=== PATIENT | male | born 1960 | race Caucasian/White ===

== ENCOUNTER 2017-03-27 10:23 | Day surgery (SDC) | payer OTHER ==
[~2017-03-27] VITALS: Ht 188 cm; Wt 135.0 kg
[~2017-03-27 10:23] MED LIST: ALBU8.5H4 IH; BENZ-12 PO; CYAN250010 PO; DORZ10DR22 OU; FLUT16SP2 NS; GABA-502 PO; LATA2.5D6 OU; LISI10TA PO; OXYC-465 PO; SYN.15T2 PO; TAM75UDCAP PO; TEST200V20 IM; TIZA4CAP8 PO; ZLP10T PO
[2017-03-27] MEDS ORDERED: MethylprednisoLONE Depot 80 mg/mL Inj ONE (10:24)
[2017-03-27] MEDS ORDERED: Iohexol 240 mg/mL 10 mL Inj ONE (10:24)
[2017-03-27 11:19] VITALS: BP 126/88; PULSE 76; RESP 14; O2SAT 98
--- NOTE | 2017-03-27 13:05 | PCM.PROC ---
Procedure Note Date of Service: Mar 27, 2017 Pre Procedure Diagnosis: PROCEDURE: Lumbar Interlaminar epidural steroid injection. RIGHT L5-S1 ASA / ANTI-COAGULATION . No asa x 7 days. PRE-PROCEDURE DIAGNOSIS: Lumbar radiculopathy POST-PROCEDURE DIAGNOSIS: same INDICATION: 56-year-old patient referred for RIGHT L5-S1 interlaminar epidural steroid injection for lumbar radiculopathy. PERFORMED BY: Ralph Goodman MD DESCRIPTION OF PROCEDURE: Patient was met in the holding area. Consent was signed, site was confirmed and all questions were answered. Patient was taken to the procedure suite and placed prone on the procedure table. Area was prepped and draped in sterile fashion. Local anesthesia with 1% lidocaine was injected. An 18-gauge Touhy needle was advanced toward the interlaminar space using fluoroscopic guidance after optimizing the AP view. A loss of resistance syringe was attached as we approached the epidural space in the lateral view. After [id number] was obtained, radioopaque contrast was injected under live fluro which confirmed epidural placement without intravascular uptake. Then , 80 mg depomedrol was injected without difficulty. ANESTHESIA: Local. EBL: None. No Blood Products Used COMPLICATIONS: None SPECIMENS: None POST-PROCEDURE DISPOSITION: Patient was returned to the holding area in stable condition. They were discharged home when all discharge criteria were met. Evaluation/Physical Exam before discharge revealed: DISCHARGE MEDICATIONS: FOLLOW UP: Return to clinic in 4 weeks Ralph Goodman MD * Pain Management * Anesthesiology .ED: Y: Patient given care and follow up instructions Ralph Goodman MD Mar 27, 2017 13:05
== END 2017-03-27 23:59 | disposition home or self-care (01) ==
LOC: END 10:23
PROVIDERS: ATTEND Anesthesiology Pain Medicine
DX: M54.16 Radiculopathy, lumbar region (principal); I10 Essential (primary) hypertension; E03.9 Hypothyroidism, unspecified; G89.29 Other chronic pain; F41.9 Anxiety disorder, unspecified; E66.9 Obesity, unspecified; Z68.38 Body mass index [BMI] 38.0-38.9, adult
CPT/HCPCS: 62323; J1040

== ENCOUNTER 2017-08-21 17:18 | Emergency (ER) | payer OTHER ==
[~2017-08-21] VITALS: Ht 188 cm; Wt 131.8 kg
[~2017-08-21 17:18] MED LIST changes: -ALBU8.5H4 IH; -BENZ-12 PO; -FLUT16SP2 NS; -TAM75UDCAP PO; -TIZA4CAP8 PO
[2017-08-21 17:36] VITALS: BP 102/68; PULSE 69; RESP 16; O2SAT 98
--- NOTE | 2017-08-21 18:17 | ED.REPORT ---
HPI-General Illness Date of Service Aug 21, 2017 ED Provider: Guillermo Galvez MD The pt is a 56 y/o male with a hx of HTN and A-fib who presents to the ED complaining of dizziness, lightheadedness, and vision changes that lasted about 2 hours, onset 5 hours ago. He describes it as "watercolors". He states " nothing I looked at was normal. It felt like someone drugged me". He also reports difficulty balancing, lightheadedness, dizziness and tingling sensation in both upper arms for a couple of weeks. He reports vertigo every time he stands up after sitting or lying down for a few minutes. No speech difficulty, no unilateral symptoms. The pt was recently prescribed anti-depressants. He stopped taking the medication but continued to experience dizziness. He denies fever, chest pain, headache, shortness of breath and any other sx at this time. In the ED, he is asymptomatic. Nursing Notes Stated Complaint: DIZZINESS,VISION PROBLEMS Chief Complaint: General Complaint Nursing Notes Reviewed: Yes Allergies: Coded Allergies: latex (Verified Allergy, Intermediate, itchy, 08/21/17) Scheduled Cyanocobalamin (Vitamin B-12) (Vitamin B12) 2,500 Mcg Tablet 1,000 MCG PO DAILY Dorzolamide HCl/Timolol Maleat (Cosopt Eye Drops) 10 Ml Drops 1 GTT OU BID Gabapentin (Gabapentin) 300 Mg Capsule 300 MG PO TID Latanoprost (Latanoprost) 2.5 Ml Drops 1 GTT OU HS Levothyroxine (Synthroid) 150 Mcg Tablet 125 MCG PO DAILY Lisinopril (Lisinopril) 10 Mg Tablet 10 MG PO DAILY Testosterone Cypionate (Testosterone Cypionate) 200 Mg/1 Ml Vial 200 MG IM [id number] Scheduled PRN Zolpidem (Ambien) 10 Mg Tablet 10 MG PO HS PRN PRN For Insomnia oxyCODONE-Acetaminophen 7.5-325 mg (oxyCODONE-Acetaminophen 7.5-325 mg) 1 Each Tablet 1 TAB PO Q6H PRN PRN For Pain General Time Seen by MD: 20:19 Chief Complaint Other (vision change) Hx Obtained From: Patient Arrived By: Walk-in Sudden in Onset?: Yes Onset Occurred: 5 - 8 hours ago Symptom Duration: Since onset Severity: Current: No pain currently Severity: Maximum: No pain Recent Healthcare: No recent doctor visit Past Medical History Past Medical History Notes: PCP Dr. Riley Past Medical History denies history of ulcers vaccinated for tetanus only denies allergies fibromyalgia low thyroid Reports: Hypertension Reports: Atrial fibrillation, Glaucoma Past Surgical History none reported Family History none reported Smoking History Never Smoker Social History Alcohol Use: "Social" Ambulatory Status Independent Review of Systems Reports: difficulty balancing Reports: tingling sensation in both upper arms Full Review of Systems Constitutional: Denies: Fever Eyes: Denies: Blurred bilateral, Diplopia Ears / Nose / Throat: Denies: Sore throat Respiratory: Denies: Shortness of breath Cardiovascular: Denies: Chest pain GI: Denies: Abdominal pain Male: Denies Dysuria Musculoskeletal: Denies: Extremity swelling Hematologic: Denies Bruising Skin: Denies Rash Allergy / Immune: Denies: Itching Neurologic: Reports: Dizziness, Lightheaded, Vision change, Denies: Headache, Slurred speech Psychiatric: Denies: Change mental status Complete sys rev & neg: except as marked. Physical Exam Nursing note and vitals reviewed. Constitutional: Well-developed, well-nourished. Not diaphoretic. Head: Normocephalic and atraumatic. Mouth/Throat: Oropharynx is clear and moist. No oropharyngeal exudate. Eyes: EOM are normal. Pupils are equal, round, and reactive to light. Neck: Supple, no tracheal deviation. Cardiovascular: Normal rate, regular rhythm. Equal and intact distal pulses throughout. Pulmonary/Chest: Effort normal and breath sounds normal. No respiratory distress. Abdominal: Soft. No distension. There is no tenderness, rebound, or guarding. Bowel sounds present. Musculoskeletal: Range of motion grossly intact, moving all extremities. No edema or tenderness appreciated. Neurological: AOx3. Grossly nonfocal exam.Strength and sensation intact and equal to bilateral upper and lower extremities. Normal finger to nose testing. Normal gait. Skin: Warm and dry, no rashes or pallor appreciated. Psychiatric: Appropriate mood and affect. Behavior appears normal. Vital Signs Vital Signs Date Time Temp Pulse Resp B/P Pulse Ox O2 Delivery O2 Flow Rate FiO2 08/21/17 22:26 37.1 64 18 124/77 97 Room Air 08/21/17 22:08 64 124/77 97 Room Air 08/21/17 20:15 75 119/71 97 Room Air 08/21/17 18:45 69 18 99/59 98 Room Air 08/21/17 17:36 37.1 69 16 102/68 98 Room Air Initial VS: Reviewed Interpretation & Diagnostics PROCEDURE: MRI BRAIN WITHOUT CONTRAST ([id number]) IMPRESSION: 1. No evidence of infarct or other definite acute intracranial abnormality. 2. Scattered foci of white matter T2 hyperintensity are nonspecific but likely represent mild chronic small vessel ischemic changes. Dictated by: Moe Hoang M.D. on 08/21/2017 at 21:48 Approved by: Moe Hoang M.D. on 08/21/2017 at 21:48 Lab Results Interpretation Result Diagram: 08/21/17 1832 08/21/17 1832 Test 08/21/17 18:32 White Blood Count 8.2th/mm3 (3.8-10.1) Red Blood Count 5.09mil/mm3 (4.40-5.80) Hemoglobin 15.5g/dL (13.8-17.2) Hematocrit 46.1% (41.0-50.0) Mean Corpuscular Volume 90.6fL (81-100) Mean Corpuscular Hemoglobin 30.5pg (27.0-35.0) Mean Corpuscular Hemoglobin Concent 33.6% (32.0-37.0) Red Cell Distribution Width 13.4% (12.3-15.4) Platelet Count 252bil/L (150-400) Neutrophils (%) (Auto) 59.7% (40-74) Lymphocytes (%) (Auto) 28.0% (14-46) Monocytes (%) (Auto) 8.8% (4-12) Eosinophils (%) (Auto) 2.7% (0-5) Basophils (%) (Auto) 0.6% (0-3) Sodium Level 139mEq/L (134-144) Potassium Level 4.4mEq/L (3.5-5.2) Chloride Level 100mEq/L (97-108) Carbon Dioxide Level 24mmol/L (18-29) Blood Urea Nitrogen 15mg/dL (6-24) Creatinine 1.06mg/dL (0.76-1.27) Estimat Glomerular Filtration Rate 77mL/min (>59) Glucose Level 97mg/dL (60-99) Calcium Level 9.2mg/dL (8.5-10.1) Magnesium Level 2.0mg/dL (1.6-2.6) Total Bilirubin 0.5mg/dL (0.0-1.2) Aspartate Amino Transf (AST/SGOT) 30U/L (0-50) Alanine Aminotransferase (ALT/SGPT) 31U/L (0-44) Alkaline Phosphatase 57U/L (25-150) Troponin T < 0.010ug/L (0.0-0.011) Total Protein 7.8g/dL (6.4-8.4) Albumin 4.4g/dL (3.4-5.0) ECG Interpretation ECG Interpretation: Normal sinus rhythm. Rate 69. No acute ischemic changes No changes from the previous ECG on 03/01/17 Time: 22:05 Interpreted by: ED physician Re-Eval/Medical Decision Med Decision/Clinical Course In summary, 56-year-old male presenting to the ED for evaluation of lightheadedness, dizziness, and vision changes that happened earlier today, since resolved. Differential is broad and includes metabolic abnormality, CVA, acute ingestion, vasovagal episode, dehydration, etc. The patient has no focal neurologic symptoms at this time or previously, no unilateral symptoms, no difficulty speaking. He denies taking any new medications or substances including illicit drugs. Laboratory studies here grossly within normal limits, including CBC and CMP. EKG demonstrates sinus rhythm with no acute ischemic changes. Given the patient's odd story and his concern, decision was made to obtain an MRI. This was negative for any acute intracranial abnormality, however the likely chronic small vessel ischemic changes were discussed with the patient. I do not think that these are responsible for his symptoms at this time. He has no symptoms at this time whatsoever. Given reassuring workup thus far, reasonable to discharge home with very careful return precautions and close outpatient follow-up with his PCP as this going on for nearly 1 month now. Patient agreeable to the plan as stated, no further questions. Time of Eval: 20:28 Re-Evaluation/Progress Note: Discussed the plan to do an MRI. The pt understands and agrees with the plan. All questions answered. Time of Eval: 21:56 Patient Status: Condition improved Re-Evaluation/Progress Note: Rechecked pt. Discussed lab results, imaging results, diagnosis and plan to discharge. Pt understands and agrees with the plan. F/U instruction and RTER warning given. All questions addressed. Counseled Regarding: Diagnosis, Lab results, Need for follow-up, When/why to return to ED Discharge & Departure Primary Impression: Dizziness Additional Impression: Near syncope Disposition: Home Discharge Condition All VS Reviewed: Yes Condition: Stable Patient Instructions: Dizziness (ED), Near Syncope (ED) Additional Instructions: Thank you for allowing us to be a part of your care in the ED today. Your emergency department results, including labs and MRI, are reassuring. I do not think that there is an emergent cause for your symptoms today that would require admission to the hospital; however, a clear cause of your symptoms was not identified. Please schedule a follow up appointment with your primary care physician tomorrow for a recheck. Please return to the emergency department for any new or worsening symptoms including any nausea, vomiting, abdominal pain, shortness of breath, chest pain , one sided weakness/numbness, fevers, or chills, or if there's anything else of concern to you. Referrals: Baldo Riley MD (PCP) Scribe Attestation Portions of this note were transcribed by Caroline Marc. I,, personally performed the history,physical exam and medical decision-making;I reviewed and confirmed the accuracy of the information in the transcribed note. Signed by Sivan Eden. 08/21/17 copies to: Baldo Riley MD, William B MD Aug 21, 2017 18:17 Caroline Marc Aug 21, 2017 20:26
[2017-08-21 18:45] VITALS: BP 99/59; PULSE 69; RESP 18; O2SAT 98
[2017-08-21 18:49] LABS: BASOPHILS % (AUTO) 0.6 % (0-3); EOSINOPHILS % (AUTO) 2.7 % (0-5); MONOCYTES % (AUTO) 8.8 % (4-12); Mean Corpuscular Hemoglobin 30.5 pg (27.0-35.0); Mean Corpuscular Volume 90.6 fL (81-100); NEUTROPHILS % (AUTO) 59.7 % (40-74); Platelet Count 252 bil/L (150-400)
[2017-08-21] MEDS ORDERED: 0.9% Sodium Chloride 1,000 ML IV ONE (18:50)
[2017-08-21 19:26] LABS: TROPONIN T < 0.010 ug/L (0.0-0.011)
[2017-08-21 20:15] VITALS: BP 119/71; PULSE 75; O2SAT 97
--- NOTE | 2017-08-21 21:49 | DRSVH ---
PROCEDURE: MRI BRAIN WITHOUT CONTRAST ([id number]) INDICATIONS: Dizziness, imbalance, and visual changes. TECHNIQUE: Noncontrast axial T1 spin echo, axial T2 fast spin echo, sagittal and axial FLAIR, coronal T2 fast sp in echo, axial gradient echo, axial diffusion and ADC through the brain. COMPARISON: None. FINDINGS: Image quality: Excellent. CSF Spaces: Basal cisterns are patent. No extra-axial fluid collections. Ventricles are normal in size and shape. Brain: No intracranial hemorrhage, mass, or mass effect. [place]/white matter interface is normal. Br ainstem appears normal. Diffusion-weighted images demonstrate no acute infarcts. There are a few sc attered periventricular and subcortical foci of white matter T2 hyperintensity which are nonspecific but likely reflect mild chronic small vessel ischemic changes. Normal intravascular flow voids are p resent. Skull and face: Calvarium has normal marrow signal. Orbits appear normal. Sinuses: There is mild mucosal thickening in the ethmoid and maxillary sinuses. IMPRESSION: 1. No evidence of infarct or other definite acute intracranial abnormality. 2. Scattered foci of white matter T2 hyperintensity are nonspecific but likely represent mild chroni c small vessel ischemic changes. Dictated by: Moe Hoang M.D. on 08/21/2017 at 21:48 Approved by: Moe Hoang M.D. on 08/21/2017 at 21:48
[2017-08-21 22:08] VITALS: BP 124/77; PULSE 64; O2SAT 97
[2017-08-21 22:26] VITALS: BP 124/77; PULSE 64; RESP 18; O2SAT 97
== END 2017-08-21 22:13 | disposition home or self-care (01) ==
LOC: SED 17:18
DX: R55 Syncope and collapse (principal); R42 Dizziness and giddiness; I10 Essential (primary) hypertension; I48.91 Unspecified atrial fibrillation; Z91.040 Latex allergy status
CPT/HCPCS: 36415; 70551; 80053; 83735; 84484; 85025; 93005; 96360; 99285; J7030